=== PATIENT | male | born 1990 ===

== ENCOUNTER 2017-01-03 22:24 | Observation (INO) | payer SELFPAY ==
[2017-01-03 22:26] VITALS: O2SAT 100
--- NOTE | 2017-01-03 23:23 | ED PDOC ---
HPI: Psych/Substance Abuse Time Seen by Provider: 01/03/17 22:32 Chief Complaint (Nursing): Alcohol Ingestion Chief Complaint (Provider): Alcohol Intoxication ED Caveat: Intoxicated, Uncooperative History Per: EMS History/Exam Limitations: intoxication Onset/Duration Of Symptoms: Unknown Current Symptoms Are (Timing): Still Present Suicide/Self Injury Attempted (Context): None Modifying Factor(s): Alcohol Additional Complaint(s): Elgin is a 26 y/o male brought to the ED by [facility]. EMS states that patient was verbally threatening and abusive towards the EMS. Patient is uncooperative with providing history. PMD: None Provided Past Medical History Reviewed: Historical Data, Nursing Documentation, Vital Signs Vital Signs: Last Vital Signs Temp 98 F 01/03/17 22:25 Pulse 100 H 01/03/17 22:25 Resp 18 01/03/17 22:25 BP 156/118 H 01/03/17 22:25 Pulse Ox 100 01/03/17 22:25 - Family History Family History: States: Unknown Family Hx - Allergies Allergies/Adverse Reactions: Allergies Allergy/AdvReac Type Severity Reaction Status Date / Time Unobtainable Allergy Verified 01/03/17 22:24 Review of Systems Review Of Systems: ROS cannot be obtained secondary to pt's inabilty to answer questions. Physical Exam - Reviewed Nursing Documentation Reviewed: Yes Vital Signs Reviewed: Yes - Physical Exam Appears: Positive for: No Acute Distress Head Exam: Positive for: ATRAUMATIC, NORMAL INSPECTION, NORMOCEPHALIC Skin: Positive for: Normal Color, Warm, Dry Neck: Positive for: Normal, Painless ROM Cardiovascular/Chest: Positive for: Regular Rate, Rhythm. Negative for: Murmur Respiratory: Positive for: Normal Breath Sounds. Negative for: Wheezing, Respiratory Distress Extremity: Positive for: Normal ROM. Negative for: Pedal Edema, Deformity Neurologic/Psych: Positive for: Motor/Sensory Deficits (Slurred speech and unsteady gait) - Laboratory Results Result Diagrams: 01/03/17 23:24 01/03/17 23:24 - ECG O2 Sat by Pulse Oximetry: 100 (RA) Pulse Ox Interpretation: Normal Medical Decision Making Medical Decision Making: Time: 22:32 Initial Impression: 26 y/o intoxicated male, uncooperative and high risk for elopement, self and staff injury Initial Plan: --Alcohol Serum --CMP --Urine Drug Screen --CBC --Ativan --Haldol --Accucheck --Restraint See ED-OBS for further documentation Scribe Attestation: Documented by Taco Jimenez, acting as a scribe for Donny Hollins MD. Provider Scribe Attestation: All medical record entries made by the Scribe were at my direction and personally dictated by me. I have reviewed the chart and agree that the record accurately reflects my personal performance of the history, physical exam, medical decision making, and the department course for this patient. I have also personally directed, reviewed, and agree with the discharge instructions and disposition. ED OBSERVATION Date of observation admission: 01/03/17 Time of observation admission: 23:02 - Observation admission statement Patient is being placed in observation because:: Alcohol intoxication - Goals of Observation Goals of observation are:: Clinical sobriety - Progress Note Progress Note: 01/03/17 23:02 --Patient has been restrained in order to prevent harm of self or others, elopement --Vitals are stable 01/04/17 00:30 --Patient is resting. Vitals are stable 01/04/17 02:00 --Patient is resting comfortably with stable vitals. 01/04/17 03:30 Resting in room, no acute distress. 01/04/17 05:41 Patient awake, alert and oriented with steady gait. Stable for discharge home. Disposition - Clinical Impression Clinical Impression: Alcohol abuse with intoxication - Patient ED Disposition Is Patient to be Admitted: No - Disposition Disposition: Routine/Home Disposition Time: 23:02 (01/03/17) Condition: STABLE
[2017-01-03 23:27] LABS: BASO # 0.1 K/uL (0.0-0.2); BASO % 0.7 % (0.0-2.0); EOS % 0.6 % (0.0-4.0); HEMATOCRIT 41.1 % (35.0-51.0); LYMPH # 2.7 K/uL (1.0-4.3); LYMPH % 35.2 % (20.0-40.0); MEAN CELL VOLUME 91.2 fl (80.0-94.0); MEAN CORPUSCULAR HGB CONC 32.9 g/dL (33.0-37.0); MEAN PLATELET VOLUME 8.6 fl (7.2-11.7); MONO # 0.3 K/uL (0.0-0.8); MONO % 4.4 % (0.0-10.0); NEUT # 4.5 K/uL (1.8-7.0); NEUT % 59.1 % (50.0-75.0); RED CELL DISTRIBUTION WIDTH 14.1 % (11.5-14.5); WHITE BLOOD COUNT 7.6 K/uL (4.8-10.8)
[2017-01-03 23:39] LABS: ALB/GLOB RATIO 1.4 (1.0-2.1); ALCOHOL SERUM 205 mg/dl (0-10); ALKALINE PHOSPHATASE 83 U/L (38-126); ALT/SGPT 50 U/L (21-72); AST/SGOT 37 U/L (17-59); BILIRUBIN,TOTAL 0.3 mg/dl (0.2-1.3); BLOOD UREA NITROGEN 11 mg/dl (9-20); CALCIUM 9.2 mg/dL (8.4-10.2); CARBON DIOXIDE 21 mmol/L (22-30); CHLORIDE 108 mmol/L (98-107); GFR AFRICAN-AMERICAN > 60; GLUCOSE,RANDOM 103 mg/dL (75-110); POTASSIUM 3.9 MMOL/L (3.6-5.0); SODIUM 147 mmol/l (132-148); TOTAL PROTEIN 7.9 G/DL (6.3-8.2)
[2017-01-04 06:00] VITALS: BP 125/80; PULSE 75; RESP 16; TEMP 97.9
== END 2017-01-04 05:45 | disposition home or self-care (01) ==
LOC: H.ER 22:24 → H.EROBSV 23:02
PROVIDERS: ADMIT Emergency Medicine; ATTEND Emergency Medicine
DX: F10.129 Alcohol abuse with intoxication, unspecified (principal); Y90.7 Blood alcohol level of 200-239 mg/100 ml
CPT/HCPCS: 80053; 85025; 96372; 99283; G0378; G0480; J1630; J2060